=== PATIENT | male | born 1975 | race Caucasian/White ===

== ENCOUNTER 2018-01-01 18:45 | Emergency (ER) | payer SELFPAY ==
[~2018-01-01] VITALS: Ht 172.7 cm; Wt 80.0 kg
[2018-01-01 19:03] VITALS: BP 142/98; PULSE 94; RESP 16; TEMP 98.9; O2SAT 96
[2018-01-01] MEDS ORDERED: SODIUM CHLORIDE 0.9% FLUSH 10 ML FLUSH IV FLUSH PRN (20:00)
[2018-01-01 20:17] LABS: AUTOMATED NEUTROPHIL # 8.1 TH/MM3 (1.8-7.7); BASOPHIL # 0.1 TH/MM3 (0-0.2); BASOPHIL % 0.7 % (0.0-2.0); EOSINOPHIL # 0.1 TH/MM3 (0-0.4); EOSINOPHIL % 0.9 % (0.0-4.0); HEMATOCRIT 41.9 % (39.0-51.0); HEMOGLOBIN 14.6 GM/DL (13.0-17.0); LYMPH % 25.8 % (9.0-44.0); LYMPHOCYTE # 3.1 TH/MM3 (1.0-4.8); MEAN CELL VOLUME 94.4 FL (80.0-100.0); MONO % 5.9 % (0.0-8.0); MONOCYTE # 0.7 TH/MM3 (0-0.9); NEUT % 66.7 % (16.0-70.0); PLATELET COUNT 212 TH/MM3 (150-450); RED BLOOD COUNT 4.43 MIL/MM3 (4.50-5.90); RED CELL DISTRIBUTION WIDTH 13.6 % (11.6-17.2); WHITE BLOOD COUNT 12.1 TH/MM3 (4.0-11.0)
[2018-01-01 20:21] VITALS: O2SAT 97
[2018-01-01 20:25] LABS: BILIRUBIN, URINE NEG (NEG); BLOOD, URINE NEG (NEG); GLUCOSE,URINE NEG (NEG); KETONE, URINE NEG (NEG); MUCUS URINE FEW /lpf (OCC); NITRITE,URINE NEG (NEG); SPERM, URINE RARE; URINE COLOR YELLOW (YELLW/STRAW); URINE LEUKOCYTE ESTERASE NEG (NEG)
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
[2018-01-01] MEDS ORDERED: CETIRIZINE HCL 10 MG TAB PO ONE (20:30)
[2018-01-01 20:31] LABS: ALBUMIN 3.9 GM/DL (3.4-5.0); AST (GOT) 11 U/L (15-37); BICARBONATE 26.9 MEQ/L (21.0-32.0); BLOOD UREA NITROGEN 12 MG/DL (7-18); CALCIUM 8.9 MG/DL (8.5-10.1); CHLORIDE 104 MEQ/L (98-107); CREATININE 0.91 MG/DL (0.60-1.30); GLOMERULAR FILTRATION RATE 92 ML/MIN (>89); GLUCOSE,RANDOM 87 MG/DL (74-106); SODIUM (NA) 139 MEQ/L (136-145)
[2018-01-01 20:34] LABS: ALKALINE PHOSPHATASE 54 U/L (45-117); ALT (GPT) 15 U/L (12-78); TOTAL BILIRUBIN ADULT 0.3 MG/DL (0.2-1.0); TOTAL PROTEIN 7.8 GM/DL (6.4-8.2)
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
[2018-01-01] MEDS ORDERED: VIST25CA PO (21:33)
[2018-01-01 21:46] LABS: TROPONIN I LESS THAN 0.02 NG/ML (0.02-0.05)
--- NOTE | 2018-01-02 13:26 | EKG ---
Date Performed: 01/01/2018 Time Performed: 20:39:44 PTAGE: 42 years EKG: Sinus rhythm WITH SHORT MA INTERVAL MINIMAL VOLTAGE CRITERIA FOR LVH, CONSIDER NORMAL VARIANT BORDERLINE ECG NO PREVIOUS TRACING DOCTOR: Tim Lama Interpretating Date/Time 01/02/2018 13:24:04
== END 2018-01-01 22:08 | disposition home or self-care (01) ==
LOC: NEPC 18:45
DX: F41.0 Panic disorder [episodic paroxysmal anxiety] (principal); R94.31 Abnormal electrocardiogram [ECG] [EKG]; F17.210 Nicotine dependence, cigarettes, uncomplicated
CPT/HCPCS: 74176; 80053; 80307; 81001; 82550; 83690; 83735; 84484; 85025; 93005; 99284

== ENCOUNTER 2018-01-03 04:31 | Emergency (ER) | payer SELFPAY ==
[~2018-01-03] VITALS: Ht 172.7 cm; Wt 79.0 kg
[~2018-01-03 04:31] MED LIST: VIST25CA PO
[2018-01-03 04:37] VITALS: BP 129/83; PULSE 93; RESP 16; TEMP 98; O2SAT 100
[2018-01-03] MEDS ORDERED: ACETAMINOPHEN 325 MG TAB PO ONE (06:00)
[2018-01-03 06:56] LABS: AUTOMATED NEUTROPHIL # 4.5 TH/MM3 (1.8-7.7); BASOPHIL % 0.5 % (0.0-2.0); EOSINOPHIL # 0.2 TH/MM3 (0-0.4); EOSINOPHIL % 2.1 % (0.0-4.0); HEMATOCRIT 45.6 % (39.0-51.0); HEMOGLOBIN 16.2 GM/DL (13.0-17.0); LYMPH % 38.5 % (9.0-44.0); LYMPHOCYTE # 3.3 TH/MM3 (1.0-4.8); MEAN CELL VOLUME 93.7 FL (80.0-100.0); MEAN CORPUSCULAR HEMOGLOBIN 33.2 PG (27.0-34.0); MEAN CORPUSCULAR HGB CONC 35.5 % (32.0-36.0); MEAN PLATELET VOLUME 6.7 FL (7.0-11.0); MONOCYTE # 0.5 TH/MM3 (0-0.9); NEUT % 52.9 % (16.0-70.0); PLATELET COUNT 238 TH/MM3 (150-450); RED BLOOD COUNT 4.87 MIL/MM3 (4.50-5.90); RED CELL DISTRIBUTION WIDTH 13.7 % (11.6-17.2); WHITE BLOOD COUNT 8.6 TH/MM3 (4.0-11.0)
[2018-01-03 06:59] LABS: BILIRUBIN, URINE NEG (NEG); BLOOD, URINE NEG (NEG); GLUCOSE,URINE NEG (NEG); KETONE, URINE NEG (NEG); MUCUS URINE FEW /lpf (OCC); NITRITE,URINE NEG (NEG); PH, URINE 5.5 (5.0-8.5); URINE COLOR YELLOW (YELLW/STRAW); URINE LEUKOCYTE ESTERASE NEG (NEG)
[2018-01-03 07:13] LABS: ALBUMIN 4.3 GM/DL (3.4-5.0); AST (GOT) 16 U/L (15-37); BICARBONATE 27.1 MEQ/L (21.0-32.0); BLOOD UREA NITROGEN 13 MG/DL (7-18); CALCIUM 9.4 MG/DL (8.5-10.1); CHLORIDE 103 MEQ/L (98-107); CREATININE 0.92 MG/DL (0.60-1.30); GLOMERULAR FILTRATION RATE 91 ML/MIN (>89); GLUCOSE,RANDOM 76 MG/DL (74-106); SODIUM (NA) 138 MEQ/L (136-145)
[2018-01-03 07:14] LABS: ALT (GPT) 18 U/L (12-78)
[2018-01-03 07:24] LABS: ALKALINE PHOSPHATASE 64 U/L (45-117); TOTAL BILIRUBIN ADULT 0.3 MG/DL (0.2-1.0); TOTAL PROTEIN 8.7 GM/DL (6.4-8.2)
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
[2018-01-03 07:31] LABS: ACETAMINOPHEN LESS THAN 2.0 MCG/ML (10.0-30.0)
[2018-01-03 12:31] VITALS: BP 150/98; PULSE 110; RESP 18; O2SAT 98
--- NOTE | 2018-01-03 15:19 | EKG ---
Date Performed: 01/03/2018 Time Performed: 06:23:23 PTAGE: 42 years EKG: Sinus rhythm WITH SINUS ARRHYTHMIA NONSPECIFIC T-WAVE ABNORMALITY Since previous tracing, no significant change n oted BORDERLINE ECG PREVIOUS TRACING : 01/01/2018 20.39 DOCTOR: Tim Lama Interpretating Date/Time 01/03/2018 15:19:04
[2018-01-03 23:19] VITALS: BP 102/55; PULSE 82; RESP 18; TEMP 99.1; O2SAT 98
[2018-01-04 06:32] VITALS: BP 113/80; PULSE 80; RESP 16; TEMP 98.1; O2SAT 97
[2018-01-04 11:00] VITALS: BP 110/73; PULSE 107; RESP 18; O2SAT 98
--- NOTE | 2018-01-04 12:34 | PD ---
Physical Exam Date Seen by Provider: Jan 04, 2018 Time Seen by Provider: 12:32 Narrative 42-year-old male previously medically cleared for psychiatric evaluation has been seen by psychiatric staff and deemed safe for discharge to [facility]. Patient remains medically stable at this time. Psychiatric plan is for the patient to be transferred to [facility] directly. Data Data Last Documented VS Vital Signs Date Time Temp Pulse Resp B/P (MAP) Pulse Ox O2 Delivery O2 Flow Rate FiO2 01/04/18 11:00 107 18 110/73 (85) 98 Room Air 01/04/18 06:32 98.1 Orders Orders Acetaminophen (Tylenol) (01/03/18 06:00) Complete Blood Count With Diff (01/03/18 06:15) Comprehensive Metabolic Panel (01/03/18 06:15) Thyroid Stimulating Hormone (01/03/18 06:15) Urinalysis - C+S If Indicated (01/03/18 06:15) Electrocardiogram (01/03/18 06:15) Psych Screen (01/03/18 06:15) Drug Screen, Random Urine (01/03/18 06:15) Alcohol (Ethanol) (01/03/18 06:15) Salicylates (Aspirin) (01/03/18 06:15) Tylenol (Acetaminophen) (01/03/18 06:15) Diet Regular Basic (01/03/18 Lunch) Diet Regular Basic (01/04/18 Breakfast) Diet Regular Basic (01/04/18 Lunch) Labs Laboratory Tests Test 01/03/18 06:15 01/03/18 06:20 White Blood Count 8.6 TH/MM3 Red Blood Count 4.87 MIL/MM3 Hemoglobin 16.2 GM/DL Hematocrit 45.6 % Mean Corpuscular Volume 93.7 FL Mean Corpuscular Hemoglobin 33.2 PG Mean Corpuscular Hemoglobin Concent 35.5 % Red Cell Distribution Width 13.7 % Platelet Count 238 TH/MM3 Mean Platelet Volume 6.7 FL Neutrophils (%) (Auto) 52.9 % Lymphocytes (%) (Auto) 38.5 % Monocytes (%) (Auto) 6.0 % Eosinophils (%) (Auto) 2.1 % Basophils (%) (Auto) 0.5 % Neutrophils # (Auto) 4.5 TH/MM3 Lymphocytes # (Auto) 3.3 TH/MM3 Monocytes # (Auto) 0.5 TH/MM3 Eosinophils # (Auto) 0.2 TH/MM3 Basophils # (Auto) 0.0 TH/MM3 CBC Comment DIFF FINAL Differential Comment Blood Urea Nitrogen 13 MG/DL Creatinine 0.92 MG/DL Random Glucose 76 MG/DL Total Protein 8.7 GM/DL Albumin 4.3 GM/DL Calcium Level 9.4 MG/DL Alkaline Phosphatase 64 U/L Aspartate Amino Transf (AST/SGOT) 16 U/L Alanine Aminotransferase (ALT/SGPT) 18 U/L Total Bilirubin 0.3 MG/DL Sodium Level 138 MEQ/L Potassium Level 4.0 MEQ/L Chloride Level 103 MEQ/L Carbon Dioxide Level 27.1 MEQ/L Anion Gap 8 MEQ/L Estimat Glomerular Filtration Rate 91 ML/MIN Thyroid Stimulating Hormone 3rd Gen 2.500 uIU/ML Salicylates Level 3.7 MG/DL Acetaminophen Level LESS THAN 2.0 MCG/ML Ethyl Alcohol Level 28 MG/DL Urine Color YELLOW Urine Turbidity CLEAR Urine pH 5.5 Urine Specific [place] 1.007 Urine Protein NEG mg/dL Urine Glucose (UA) NEG mg/dL Urine Ketones NEG mg/dL Urine Occult Blood NEG Urine Nitrite NEG Urine Bilirubin NEG Urine Urobilinogen LESS THAN 2.0 MG/DL Urine Leukocyte Esterase NEG Urine WBC LESS THAN 1 /hpf Urine Mucus FEW /lpf Microscopic Urinalysis Comment CULT NOT INDICATED Urine Opiates Screen NEG Urine Barbiturates Screen NEG Urine Amphetamines Screen POS Urine Benzodiazepines Screen NEG Urine Cocaine Screen NEG Urine Cannabinoids Screen POS MDM Medical Record Reviewed: Yes Supervised Visit with MELODY: Yes Narrative Course 42-year-old male previously medically cleared for psychiatric evaluation has been seen by psychiatric staff and deemed safe for discharge to [facility]. Patient remains medically stable at this time. Psychiatric plan is for the patient to be transferred to [facility] directly. Diagnosis Primary Impression: Homicidal ideations Patient Instructions: General Instructions Disposition: 70 TRANSFER TO OTHER FACILITY Condition: Stable Maurilio Goodwin Jan 04, 2018 12:34
[2018-01-04 12:58] VITALS: BP 128/77; PULSE 82; RESP 20; O2SAT 98
== END 2018-01-04 15:16 ==
LOC: NEPC 04:31 → NEPJ 01-04 15:16
DX: R45.850 Homicidal ideations (principal); F41.9 Anxiety disorder, unspecified; R94.31 Abnormal electrocardiogram [ECG] [EKG]; Z79.899 Other long term (current) drug therapy
CPT/HCPCS: 80053; 80307; 81001; 84443; 85025; 93005; 99285